=== PATIENT | female | born 1965 | race Caucasian/White ===

== ENCOUNTER → 2016-11-29 15:53 | Outpatient (CLI) | payer MEDICAID | END | disposition home or self-care (01) | LOC: D.MRI 15:53 | DX: M54.16 Radiculopathy, lumbar region (principal) ==

== ENCOUNTER 2017-12-16 21:14 | Emergency (ER) | payer MEDICAID ==
[~2017-12-16] VITALS: Ht 175.3 cm; Wt 105.7 kg
[2017-12-16 21:19] VITALS: Ht 175.3 cm; Wt 105.7 kg
[2017-12-16] MEDS ORDERED: TOPAMAX50 MG PO (21:21)
[2017-12-16] MEDS ORDERED: BUPROPION XL300 MG PO (21:22)
[2017-12-16] MEDS ORDERED: CALCIUM/MAGNESIUM (21:22)
[2017-12-16] MEDS ORDERED: CATAPRES0.1 MG PO (21:22)
[2017-12-16 21:39] LABS: BASOPHILS 0.1 % (0-2); EOSINOPHILS 0.7 % (0-7); HEMATOCRIT 40.3 % (36.0-48.0); HEMOGLOBIN 13.4 g/dL (12-16); IMMATURE GRANULOCYTES 0.3 % (0-5); MCH 31.7 pg (26.0-34.0); MCHC 33.3 g/dL (31.0-37.0); MCV 95.3 fL (80.0-100.0); MEAN PLATELET VOLUME 8.6 fL (7.4-10.4); MONOCYTES 6.8 % (2-11); NEUTROPHILS 77.1 % (40-80); PLATELET COUNT 273 10x3/uL (130-400); RBC 4.23 10x6/uL (4.00-5.40); RDW 12.9 % (11.5-14.5); WBC 7.5 10x3/uL (4.8-10.8)
[2017-12-16 21:50] LABS: ALBUMIN 3.3 g/dL (3.4-5.0); ALKALINE PHOSPHATASE 59 U/L (46-116); ALT (SGPT) 31 U/L (10-68); CALC OSMOLALITY 273 mosm/kg (275-300); CALCIUM 8.4 mg/dL (8.5-10.1); CARBON DIOXIDE 23.4 mmol/L (21.0-32.0); CHLORIDE - SERUM 106 mmol/L (98-107); CREATININE - SERUM 1.1 mg/dL (0.6-1.3); GLUCOSE 102 mg/dL (74-106); POTASSIUM - SERUM 3.3 mmol/L (3.5-5.1); PROTEIN - SERUM 6.6 g/dL (6.4-8.2); SODIUM 137 mmol/L (136-145); UREA NITROGEN 13 mg/dL (7-18); eGFR NON AFRICAN AMERICAN 56 mL/min (90-120)
[2017-12-16 21:54] LABS: AMYLASE - SERUM 47 U/L (25-115); LIPASE 108 U/L (73-393)
[2017-12-16 22:02] LABS: TROPONIN-I < 0.017 ng/mL (0.000-0.060)
[2017-12-16 23:32] LABS: APPEARANCE CLEAR (CLEAR); BILIRUBIN NEGATIVE (NEGATIVE); COLOR YELLOW (YELLOW); GLUCOSE NEGATIVE (NEGATIVE); KETONE NEGATIVE (NEGATIVE); NITRITE NEGATIVE (NEGATIVE); PROTEIN NEGATIVE (NEGATIVE); UROBILINOGEN NORMAL (NORMAL)
[2017-12-17] MEDS ORDERED: ZOFRAN ODT4 MG/UDTAB PO (00:25)
[2017-12-17 00:41] VITALS: BP 141/83
== END 2017-12-17 00:42 | disposition home or self-care (01) ==
LOC: D.ER 21:14
PROVIDERS: Family Medicine
DX: R10.9 Unspecified abdominal pain (principal); R19.7 Diarrhea, unspecified; T62.91XA Toxic effect of unspecified noxious substance eaten as food, accidental (unintentional), initial encounter; Y92.89 Other specified places as the place of occurrence of the external cause; R11.2 Nausea with vomiting, unspecified; I10 Essential (primary) hypertension